=== PATIENT | female | born 1995 | race Caucasian/White ===

== ENCOUNTER 2021-05-04 12:24 | Emergency (ER) | payer MEDICAID ==
[2021-05-04] MEDS ORDERED: Proparacaine 0.5% Ophth Soln 15 ML Bottle EYERT ONE (13:02)
--- NOTE | 2021-05-04 13:25 | EDM.PDOC ---
ED HPI GENERAL MEDICAL PROBLEM - General Chief Complaint: Eye Problems Stated Complaint: EYE ISSUE Time Seen by Provider: 05/04/21 13:05 Source of Information: Reports: Patient History Limitations: Reports: No Limitations - History of Present Illness INITIAL COMMENTS - FREE TEXT/NARRATIVE: 25-year-old female with a left eye injury, she was waking up her 4-year-old son and they started wrestling around and he accidentally scraped her left eye with his fingernails. She has been having trouble opening her eye since that time. No other injury or complaints. Onset: Sudden Duration: Hour(s): (About 2 hours ago) Location: Reports: Other (Left eye) Associated Symptoms: Reports: No Other Symptoms - Related Data Allergies Allergy/AdvReac Type Severity Reaction Status Date / Time No Known Allergies Allergy Verified 05/04/21 12:50 Home Meds: Home Meds NK [No Known Home Meds] 05/04/21 [History] Past Medical History Respiratory History: Reports: PE Social & Family History - Tobacco Use Tobacco Use Status *Q: Current Every Day Tobacco User Years of Tobacco use: 5 Packs/Tins Daily: 0.5 ED ROS GENERAL - Review of Systems Review Of Systems: See Below Constitutional: Denies: Fever, Chills HEENT: Reports: Eye Pain, Other (Mild photophobia) Respiratory: Denies: Shortness of Breath, Cough Cardiovascular: Denies: Chest Pain GI/Abdominal: Denies: Nausea, Vomiting Skin: Reports: No Symptoms Neurological: Denies: Headache ED EXAM GENERAL W FULL EYE - Physical Exam Exam: See Below Exam Limited By: No Limitations General Appearance: Alert, No Apparent Distress, Other (Uncomfortable but not distressed) Eye Exam: Left Eye: Conjunctival Injection, Corneal Abrasion Eyelids: Bilateral: Normal Appearance Conjunctiva & Sclera: Left: Conjunctival Edema Cornea Exam: Left: Corneal Abrasion, Examined with Flourescein Extraocular Movements: Bilateral: Intact Head: Atraumatic Respiratory/Chest: No Respiratory Distress, Lungs Clear Neurological: Alert, Oriented Psychiatric: Normal Affect, Normal Mood Course - Vital Signs Last Recorded V/S: Last Vital Signs Temp 97.9 F 05/04/21 12:54 Pulse 51 L 05/04/21 12:54 Resp 14 05/04/21 12:54 BP 112/79 05/04/21 12:54 Pulse Ox 95 05/04/21 12:54 - Orders/Labs/Meds Meds: Medications Discontinued Medications Generic Name Dose Route Start Last Admin Trade Name Richard PRN Reason Stop Dose Admin Proparacaine HCl 1 ml 05/04/21 13:02 05/04/21 13:30 Proparacaine 0.5% Ophth Soln 15 Ml Bottle EYERT 05/04/21 13:03 1 ml ONETIME ONE Administration - Re-Assessments/Exams Free Text/Narrative Re-Assessment/Exam: 05/04/21 13:22 Proparacaine was used to anesthetize the left eye and the symptoms resolved. After anesthesia, fluorescein stain was applied to the cornea and with the blue light I was able to identify 2 separate small abrasions across the front of the eye. 05/04/21 13:22 Patient will be placed on gentamicin drops 4 times a day, allowed to use the proparacaine sparingly over the next 2 days for anesthesia along with oral anti- inflammatories. She needs to recheck with optometry in 48 hours if she is still having significant symptoms. Departure - Departure Time of Disposition: 13:31 Disposition: Home, Self-Care 01 Clinical Impression: Corneal abrasion, left Qualifiers: Encounter type: initial encounter Qualified Code(s): S05.02XA - Injury of conjunctiva and corneal abrasion without foreign body, left eye, initial encounter - Discharge Information Instructions: Corneal Abrasion, [id number] Referrals: PCP,None [Primary Care Provider] - Forms: ED Department Discharge Care Plan Goals: Ibuprofen or naproxen will help with discomfort, use antibiotic drops every 4 to 5 hours for the next 48 hours, and use numbing drops in your eyes every few hours if needed. Recheck at the very latest on Thursday if you are still needing pain control with the numbing eyedrops. [place] [facility] or [facility] are very good for ER checkups, they will fit you in if you call in the morning Sepsis Event Note (ED) - Evaluation Sepsis Screening Result: No Definite Risk - Focused Exam Vital Signs: Vital Signs Temp Pulse Resp BP Pulse Ox 05/04/21 12:54 97.9 F 51 L 14 112/79 95
== END 2021-05-04 13:31 | disposition home or self-care (01) ==
LOC: JP.ED 12:24
DX: S05.02XA Injury of conjunctiva and corneal abrasion without foreign body, left eye, initial encounter (principal); Z72.0 Tobacco use; W22.8XXA Striking against or struck by other objects, initial encounter; Y93.72 Activity, wrestling
CPT/HCPCS: 99283; A9270

== ENCOUNTER 2023-01-11 18:18 | Emergency (ER) | payer MEDICAID | END 2023-01-11 22:00 | disposition home or self-care (01) | LOC: JP.ED 18:18 | DX: S93.402A Sprain of unspecified ligament of left ankle, initial encounter (principal); X50.1XXA Overexertion from prolonged static or awkward postures, initial encounter | CPT/HCPCS: 73610-LT; 99283 ==

== ENCOUNTER 2024-03-05 22:44 | Emergency (ER) | payer MEDICAID ==
[2024-03-05] MEDS ORDERED: droPERidol 1.25 MG in Sodium Chloride 0.9% 50 ML IV ONE (23:15)
[2024-03-06] MEDS: Ibuprofen 600 MG Tab PO ONE (01:04)
[2024-03-06] MEDS: diphenhydrAMINE 50 MG/ML SDV IVPUSH ONE (01:50)
[2024-03-06] MEDS: droPERidol 5 MG/2 ML SDV IVPUSH ONE (01:50)
[2024-03-06] MEDS: Sodium Chloride 0.9% 1,000 ML IV SCH (01:50)
[2024-03-09 15:00] LABS: ANAPLASMA PHAGOCYTOPHILUM PCR Not Detected; BABESIA MICROTI BY PCR Not Detected; BABESIA SPECIES BY PCR Not Detected; EHRLICHIA CHAFFEENSIS BY PCR Not Detected; EHRLICHIA EWINGII/CANIS BY PCR Not Detected; EHRLICHIA MURIS-LIKE BY PCR Not Detected
== END 2024-03-06 01:48 | disposition home or self-care (01) ==
LOC: JP.ED 22:44
DX: R51.9 Headache, unspecified (principal); Z79.82 Long term (current) use of aspirin
CPT/HCPCS: 36415; 70450; 84703; 87468; 87469; 87484; 87798; 99283; 99284; A9270

== ENCOUNTER 2025-02-02 13:26 | Emergency (ER) | payer MEDICAID ==
[2025-02-02 16:27] LABS: APPEARANCE,URINE CLEAR (CLEAR); BILIRUBIN,URINE NEGATIVE (NEGATIVE); COLOR,URINE YELLOW (YELLOW); GLUCOSE,URINE NEGATIVE (NEGATIVE); KETONES,URINE NEGATIVE (NEGATIVE); LEUKOCYTE ESTERASE,URINE SMALL (NEGATIVE); NITRITE,URINE NEGATIVE (NEGATIVE); OCCULT BLOOD,URINE LARGE (NEGATIVE); PROTEIN,URINE NEGATIVE (NEGATIVE); UROBILINOGEN,URINE 0.2 EU/dL (0.2-1.0)
[2025-02-02 16:33] LABS: AMORPHOUS SEDIMENT,URINE NOT SEEN; BACTERIA,URINE FEW; EPITHELIAL CELLS,URINE FEW; MUCUS,URINE NOT SEEN; RBC,URINE PACKED (0-5)
[2025-02-02 16:34] LABS: AMPHETAMINES SCREEN, URINE NEGATIVE (NEGATIVE); BARBITURATE SCREEN,URINE NEGATIVE (NEGATIVE); BENZODIAZEPINES SCREEN,URINE NEGATIVE (NEGATIVE); METHADONE SCREEN, URINE NEGATIVE (NEGATIVE); METHAMPHETAMINES SCREEN, URINE NEGATIVE (NEGATIVE); OXYCODONE SCREEN,URINE NEGATIVE (NEGATIVE); PROPOXYPHENE SCREEN,URINE NEGATIVE (NEGATIVE); THC SCREEN,URINE 50 NG/ML NEGATIVE (NEGATIVE)
[2025-02-02 18:09] LABS: ANION GAP 12.6 mmol/L (5.0-14.0); CALCIUM 9.3 mg/dL (8.5-10.1); CREATININE 0.8 mg/dL (0.6-1.0); EST CRCL DRUG DOSING (CG) 95.05 mL/min; POTASSIUM,K 3.9 mmol/L (3.6-5.2)
[2025-02-02] MEDS: Iopamidol 755 Mg/ML 100 ML Bottle IV SCH (18:32)
[2025-02-02] MEDS: Sodium Chloride 0.9% 10 ML Syringe FLUSH ONE (18:32)
[2025-02-02] MEDS: Sodium Chloride 0.9% 100 ML IV SCH (18:32)
[2025-02-02] MEDS: Sodium Chloride 0.9% 500 ML IV ONE (19:23)
[2025-02-02] MEDS: Ketorolac 15 MG/ML SDV IVPUSH ONE (19:44)
== END 2025-02-02 20:07 | disposition home or self-care (01) ==
LOC: JP.ED 13:26
DX: S19.9XXA Unspecified injury of neck, initial encounter (principal); X58.XXXA Exposure to other specified factors, initial encounter; Y93.89 Activity, other specified; Z79.82 Long term (current) use of aspirin
CPT/HCPCS: 36415; 70498; 70551; 72141; 80048; 80305; 81001; 81025; 96361; 96374; 99284; J1885; J7030; Q9967